=== PATIENT | male | born 1960 | race Caucasian/White ===

== ENCOUNTER 2023-12-21 14:00 | Outpatient (RCR) | payer BC ==
[~2023-12-21 14:00] MED LIST: ASPIRIN81 MG PO
== END 2023-12-27 ==
LOC: PT 14:00
PROVIDERS: ATTEND Physician Assistant
DX: Z47.1 Aftercare following joint replacement surgery (principal); Z96.642 Presence of left artificial hip joint; M25.552 Pain in left hip; M62.81 Muscle weakness (generalized); R26.2 Difficulty in walking, not elsewhere classified